=== PATIENT | male | born 1995 | race African-American/Black ===

== ENCOUNTER 2020-09-15 05:58 | Emergency (ER) | payer MEDICAID, OTHER ==
[~2020-09-15] VITALS: Ht 167.6 cm; Wt 68.0 kg
[2020-09-15 08:02] VITALS: BP 119/86
== END 2020-09-15 08:33 | disposition home or self-care (01) ==
LOC: ER 05:58
DX: H66.91 Otitis media, unspecified, right ear (principal); F17.210 Nicotine dependence, cigarettes, uncomplicated

== ENCOUNTER 2022-12-19 08:07 | Emergency (ER) | payer MEDICAID ==
[~2022-12-19] VITALS: Ht 167.6 cm; Wt 58.0 kg
[2022-12-19 08:33] VITALS: BP 126/85; PULSE 53; RESP 18; TEMP 97.9; O2SAT 99
[2022-12-19] MEDS ORDERED: NAPR-746 PO (08:48)
== END 2022-12-19 08:53 | disposition home or self-care (01) ==
LOC: ER 08:07
DX: S63.91XA Sprain of unspecified part of right wrist and hand, initial encounter (principal); S60.511A Abrasion of right hand, initial encounter; F17.210 Nicotine dependence, cigarettes, uncomplicated; F12.90 Cannabis use, unspecified, uncomplicated; Y04.2XXA Assault by strike against or bumped into by another person, initial encounter; Y93.89 Activity, other specified; Y92.89 Other specified places as the place of occurrence of the external cause; Y99.8 Other external cause status
CPT/HCPCS: 73130

== ENCOUNTER 2023-05-18 17:19 | Emergency (ER) | payer MEDICAID ==
[~2023-05-18] VITALS: Ht 170.2 cm; Wt 61.3 kg
[~2023-05-18 17:19] MED LIST: NAPR-746 PO
[2023-05-18 17:40] VITALS: BP 134/52; PULSE 72; RESP 16; O2SAT 97
== END 2023-05-18 20:41 | disposition home or self-care (01) ==
LOC: ER 17:19
DX: R09.A2 Foreign body sensation, throat (principal); F17.210 Nicotine dependence, cigarettes, uncomplicated; Z79.899 Other long term (current) drug therapy

== ENCOUNTER 2023-09-07 23:42 | Emergency (ER) | payer MEDICAID ==
[~2023-09-07] VITALS: Ht 167.6 cm; Wt 63.0 kg
[2023-09-08] MEDS: ACETAMINOPHEN 500 MG TAB PO ONE (00:10)
[2023-09-08 00:28] VITALS: BP 134/88; PULSE 101; RESP 20; TEMP 98.8; O2SAT 98
[2023-09-08] MEDS: TETANUS-DIPTH-ACEL PERTUSSIS 0.5ML SYR Tdap IM ONE (00:48)
[2023-09-08] MEDS ORDERED: IBUP-1455 PO (01:28)
[2023-09-08] MEDS ORDERED: HYDR-4902 PO (01:28)
== END 2023-09-08 01:35 | disposition home or self-care (01) ==
LOC: ER 23:42
DX: S02.609A Fracture of mandible, unspecified, initial encounter for closed fracture (principal); S01.112A Laceration without foreign body of left eyelid and periocular area, initial encounter; F41.9 Anxiety disorder, unspecified; F32.9 Major depressive disorder, single episode, unspecified; F17.210 Nicotine dependence, cigarettes, uncomplicated; F12.10 Cannabis abuse, uncomplicated; Y04.2XXA Assault by strike against or bumped into by another person, initial encounter; Y93.01 Activity, walking, marching and hiking; Y92.89 Other specified places as the place of occurrence of the external cause; Y99.8 Other external cause status
CPT/HCPCS: 12011; 70486; 90471; 90715